=== PATIENT | male | born 1965 | race Two or more races ===

== ENCOUNTER 2024-12-26 16:37 | Emergency (ER) | payer MEDICAID, SELFPAY ==
[2024-12-26 16:39] VITALS: BMI 32.4
[2024-12-26 17:04] VITALS: BP 135/83; PULSE 96; RESP 16; TEMP 37.2; O2SAT 96
--- NOTE | 2024-12-26 17:14 | PD.EDRME ---
Rapid Medical Screening Exam E Arrival date/time: 12/26/24 16:37 This is a 59-year-old male that comes into the emergency room with complaints of abdominal pain. Patient states that it is a pressure and sometimes a cramping pain that he has had over a month. Patient was seen by his primary provider and was prescribed omeprazole. Patient states that it has not helped him. Patient denies nausea vomiting but complains of diarrhea sometimes. Patient denies fever. Patient reports history of possible diabetes. I have greeted and performed a focused initial assessment of this patient. Initial appropriate labs ordered at this time. A comprehensive ED assessment and evaluation of the patient and analysis of all test and completion of medical decision making process will be conducted by additional ED provider. Chief Complaint: Abdominal Pain Time Seen by Provider: 12/26/24 16:59 Vital signs: Vital Signs Temperature 99.0 F 12/26/24 17:04 Pulse Rate 96 12/26/24 17:04 Respiratory Rate 16 12/26/24 17:04 Blood Pressure 135/83 H 12/26/24 17:04 Pulse Oximetry (%) 96 12/26/24 17:04 Oxygen Delivery Method Room Air 12/26/24 17:04
[2024-12-26 18:16] LABS: Collection Type, Urine Voided; Squamous Epithelial Cell,Urine 0 /hpf (0-5)
[2024-12-26 18:20] LABS: Basophils # (Auto) 0.0 Thou/mm3 (0.0-0.2); Basophils % (Auto) 1 % (0-2.5); Eosinophils # (Auto) 0.3 Thou/mm3 (0.0-0.5); Eosinophils % (Auto) 5 % (0-10); Hematocrit 42.3 % (41.0-53.0); Hemoglobin 13.2 g/dL (13.5-16.0); Immature Granulocytes Auto 0.01 Thou/mm3 (0.00-0.00); Lymphocytes # (Auto) 0.9 Thou/mm3 (1.0-4.8); Lymphocytes % (Auto) 17 % (10-50); Mean Corpuscular HGB Conc 31.2 g/dl (31.0-37.0); Mean Corpuscular Hemoglobin 23.9 pg (25.0-35.0); Mean Corpuscular Volume 77 fL (80-100); Monocytes # (Auto) 0.6 Thou/mm3 (0.0-0.8); Monocytes % (Auto) 10 % (0-12); Neutrophils # (Auto) 3.6 Thou/mm3 (1.8-7.7); Neutrophils % (Auto) 67 % (37-80); Nucleated Red Blood Cell # 0.00 Thou/mm3 (0.00-0.00); Nucleated Red Blood Cell % 0 /100 WBC (0); Platelet Count 243 Thou/mm3 (140-440); RDW Standard Deviation 36.2 fL (35.1-43.9); Red Blood Count 5.53 Miln/mm3 (4.50-5.90); White Blood Count 5.4 Thou/mm3 (3.8-10.6)
[2024-12-26 18:35] LABS: Bacteria,Urine Rare; Bilirubin,Urine Negative (Negative); Blood,Urine Negative (Negative); Clarity,Urine Turbid (Clear/Hazy); Color,Urine Yellow (Lt Yel-Yel); Culture Indicated,Urine Not Indicated; Glucose, Urine Negative (Negative); Hyaline Casts,Urine < 1 /hpf (0-1); Ketones,Urine Negative (Negative); Leukocyte Esterase,Urine Negative (Negative); Nitrite,Urine Negative (Negative); PH,Urine 6.5 (5.0-7.0); Protein,Urine Trace (Neg - Trace); RBC,Urine 4 /hpf (0-3); Specific Gravity,Urine 1.032 (1.001-1.035); Urobilinogen,Urine 2.0 mg/dL (0.0-1.0); WBC,Urine 2 /hpf (0-5)
[2024-12-26 18:36] LABS: Alanine Aminotransferase 11 U/L (10-49); Albumin, Serum 4.1 gm/dL (3.4-4.8); Albumin/Globulin Ratio 1.6 (1.2-2.2); Alkaline Phosphatase 96 U/L (46-116); Anion Gap 10 (7-16); Aspartate Amino Transferase 20 U/L (0-34); BUN/Creatinine Ratio 6 Ratio (12-20); Bilirubin,Total 0.6 mg/dL (0.3-1.2); Blood Urea Nitrogen 6 mg/dL (9-23); Calcium 9.6 mg/dL (8.3-10.6); Calcium (Corrected) 9.6 mg/dL (8.5-10.1); Carbon Dioxide 25.7 mMol/L (20.0-31.0); Chloride 104 mMol/L (98-107); Creatinine (Component) 1.0 mg/dL (0.6-1.3); Estimated Creatinine Clearance 80.3 mL/min (>60); Globulin 2.6 gm/dL (2.3-3.5); Glucose 106 mg/dL (74-106); Lipase 59 U/L (12-53); Osmolality,Calculated 277 (275-295); Potassium 3.7 mMol/L (3.4-5.1); Sodium 140 mMol/L (136-145); Total Protein 6.7 gm/dL (5.7-8.2); eGFR > 60 See Note
[2024-12-26 19:10] VITALS: BP 127/80; PULSE 92; RESP 18; O2SAT 98
--- NOTE | 2024-12-26 19:13 | EDNOTE_ITS ---
ED Abdominal Pain RME/HPI General Chief Complaint: Abdominal Pain Stated complaint: ABD PAIN Time seen by provider: 12/26/24 16:59 Arrival date/time: 12/26/24 16:37 RME / HPI RME / HPI narrative: 59-year-old male that comes into the emergency room with complaints of abdominal pain. Patient states that it is a pressure and sometimes a cramping pain that he has had over a month. Patient was seen by his primary provider and was prescribed omeprazole. Patient states that it has not helped him. Patient denies nausea vomiting but complains of diarrhea sometimes. Patient denies fever. Patient reports history of possible diabetes. Denies any other complaints no medication was taken prior to arrival. Related Data Previous Rx's ?Medication ?Instructions ?Recorded famotidine 40 mg tablet (Pepcid) 40 mg PO BID #30 tabs 12/26/24 metoclopramide HCl 10 mg tablet 10 mg PO Q6H PRN nause a and 12/26/24 (Reglan) vomiting #20 tabs Allergies Allergy/AdvReac Type Severity Reaction Status Date / Time No Known Allergies Allergy Verified 12/26/24 16:39 Review of Systems Review of Systems Narrative Review of Systems: Review of system reviewed and within normal limits except mentioned in HPI ED Exam Narrative Physical exam: VITAL SIGNS: Reviewed. GENERAL APPEARANCE: Alert and interactive, follows commands, no acute distress, HEAD AND FACE: Non-traumatic. ENT: PERRL, pink conjunctivitis, eyelid no trauma, Mucous membrane moist. NECK: Supple, nontender, no nuchal rigidity. CHEST: No tenderness, no crepitus, no paradoxical movement, no retractions. LUNGS: Clear, well ventilated, symmetric, no rales, no wheezing, no ronchi, no stridor, good breath sounds bilaterally. HEART: Regular rate, regular rhythm, no murmur, no gallops. ABDOMEN: Soft, positive bowel sounds, nondistended, no guarding, epigastric mild tenderness, no rebound, no masses, RECTAL: Deferred. GENITAL: Deferred. NEUROLOGICAL: Gross motor function intact sensory function intact, Appropriate for age. MUSCULOSKELETAL: low back nontender, full range of motion. EXTREMITIES: Nontender, full range of motion. SKIN: Color pink, dry, no rash, no lacerations, no abrasions, no contusions. LYMPHATICS: Deferred. Course Quality Measures none Orders Category Date Time Status CBC Stat Lab 12/26/24 17:58 Completed Comprehensive Metabolic Panel Stat Lab 12/26/24 17:58 Completed Lipase Stat Lab 12/26/24 17:58 Completed Urinalysis, C/S if Indicated Stat Lab 12/26/24 18:08 Completed Vital Signs Vital signs: Vital Signs Temperature 99.0 F 12/26/24 17:04 Pulse Rate 96 12/26/24 17:04 Respiratory Rate 16 12/26/24 17:04 Blood Pressure 135/83 H 12/26/24 17:04 Pulse Oximetry (%) 96 12/26/24 17:04 Oxygen Delivery Method Room Air 12/26/24 17:04 Abdominal Pain MDM MDM Narrative MDM Narrative:: 59-year-old male that comes into the emergency room with complaints of abdominal pain. Patient states that it is a pressure and sometimes a cramping pain that he has had over a month. Patient was seen by his primary provider and was prescribed omeprazole. Patient states that it has not helped him. Patient denies nausea vomiting but complains of diarrhea sometimes. Patient denies fever. Patient reports history of possible diabetes. Denies any other complaints no medication was taken prior to arrival. Patient's workup today all came back normal no leukocytosis, CMP unremarkable lipase is 59. Imaging is not needed at this time patient is having pain for more than a month now. Patient will be sent home on Pepcid. Patient appears nontoxic and hemodynamically stable .Decision to discharge the patient. The patient/family was given an opportunity to ask questions and understood their discharge instructions. Discharge instructions specifically included follow up provider and time frame, current and/or new medications and possible side effects, indications for sooner follow up or return to the emergency department, and the expected course of current diagnosis. Patient reports feeling better as well and giving evidence of significant clinical improvement, I believe patient is now a candidate for discharge. Patient data External records reviewed:: None Clinical information provided by:: patient Social determinants that could affect healthcare access:: none Patient has the following chronic illnesses:: Diabetes How is presenting disease/condition affected by chronic disease/condition?: exacerbated by Evaluation data The following diagnostics were reviewed and interpreted by me:: lab results Lab and/or radiology exams considered but not ordered:: None Interpretation Summary: See results MDM Medications / Prescriptions Medications or Prescriptions considered but not ordered:: None Medication administrations:: None Consultations Consultation(s) initiated? (list below): No Diagnosis Differential diagnosis abdominal pain: abdominal pain and pancreatitis Most likely diagnosis given after review of the tests above:: Abdominal pain, gastritis gastroparesis Admission Indicated Admission indicated?: indicated Admission Request Was there a request for admission?: No Disposition Plan Disposition Plan: Discharge Discharge Attestation Discharge Attestation: The patient was given an opportunity to ask questions and understood the discharge instructions. Discharge instructions specifically effects, indications for sooner follow up or return to the emergency department, and the expected course of current diagnosis. Patient condition: Stable Discharge Plan Plan Patient Disposition: HOME (Self Care) Discharge Disposition comment: stable Prescriptions/Referrals Prescriptions/Med Rec: New metoclopramide HCl [Reglan] 10 mg tablet 10 mg PO Q6H PRN (Reason: nausea and vomiting) Qty: 20 0RF famotidine [Pepcid] 40 mg tablet 40 mg PO BID Qty: 30 0RF Referrals: Edilberto Butler MD [Primary Care Provider] - In 1 week Problem List Clinical Impression: Abdominal pain, Gastritis Patient/Caregiver Discharge Instructions Discharge Activity: activity as tolerated Education Materials: ED Gastritis (Adult) Additional Instructions: Thank you for the opportunity for serving you today. You are stable for discharged . You are advised to: Follow-up with your PCP in 1 to 2 days Return to ED for worsening of symptoms Increase oral fluids Take medication as prescribed Print Language: Belarusian Stand Alone Forms: Luz Award Info., Patient Portal Info Letter JAVAD/NOEL Supervising Physician BREANNE Supervising Physician: MD Wisam
== END 2024-12-26 19:50 | disposition home or self-care (01) ==
PROVIDERS: Nurse Practitioner Family; Emergency Provider Family Medicine; PCP Family Medicine
DX: K29.70 Gastritis, unspecified, without bleeding (principal)
CPT/HCPCS: 36415; 80053; 81001; 83690; 85025; 99283

== ENCOUNTER 2025-01-15 09:04 | Emergency (ER) | payer MEDICAID, SELFPAY ==
[2025-01-15 09:15] VITALS: BP 130/89; PULSE 104; RESP 18; TEMP 36.9; O2SAT 98; BMI 32.4
--- NOTE | 2025-01-15 09:23 | XR_ITS ---
Examination: CT abdomen and pelvis without contrast. Coronal 3-D reconstructions. Sagittal 2-D reconstructions. Date and time of exam:January 15, 2025 0940 hours INDICATIONS: Generalized abdominal pain today CTDI: vol (mGy): 8.95 DLP: (mGycm): 6 3 0 Technique: Axial images of the abdomen have been obtained, 3 mm slice thickness Intravenous contrast material has not been administered. Low dose protocols were performed. One or more of the following dose reduction techniques were used; automated exposure control, adjustment of the mA and/or KV according to patient size, use of iterative reconstruction technique. Findings: Cirrhosis, liver irregular in contour with prominent ascites, no focal liver or splenic lesions No gallstones No pancreatic or adrenal mass. No hydronephrosis Aorta normal size No bowel obstruction Normal appendix Contracted urinary bladder Prostatomegaly, transverse dimension 5.6 cm Moderate osteopenia IMPRESSION: Cirrhosis Significant ascites No bowel obstruction
--- NOTE | 2025-01-15 09:23 | PD.EDRME ---
Rapid Medical Screening Exam RME Arrival date/time: 01/15/25 09:04 59-year-old male with no known medical history presents to the emergency room with a chief complaint of abdominal distention, abdominal pain, nausea, vomiting x 3 weeks I have greeted and performed a focused initial assessment of this patient. A comprehensive ED assessment and evaluation of the patient, analysis of all test results, and completion of the medical decision making process will be conducted by additional ED providers. Chief Complaint: Abdominal Pain Time Seen by Provider: 01/15/25 09:07 Vital signs: Vital Signs Temperature 98.5 F 01/15/25 09:15 Pulse Rate 104 H 01/15/25 09:15 Respiratory Rate 18 01/15/25 09:15 Blood Pressure 130/89 H 01/15/25 09:15 Pulse Oximetry (%) 98 01/15/25 09:15 Oxygen Delivery Method Room Air 01/15/25 09:15 Vital signs reviewed by provider: Yes
[2025-01-15 10:19] LABS: Basophils # (Auto) 0.1 Thou/mm3 (0.0-0.2); Basophils % (Auto) 1 % (0-2.5); Eosinophils # (Auto) 0.1 Thou/mm3 (0.0-0.5); Eosinophils % (Auto) 2 % (0-10); Hematocrit 41.2 % (41.0-53.0); Hemoglobin 13.2 g/dL (13.5-16.0); Immature Granulocytes Auto 0.01 Thou/mm3 (0.00-0.00); Lymphocytes # (Auto) 0.8 Thou/mm3 (1.0-4.8); Lymphocytes % (Auto) 14 % (10-50); Mean Corpuscular HGB Conc 32.0 g/dl (31.0-37.0); Mean Corpuscular Hemoglobin 24.0 pg (25.0-35.0); Mean Corpuscular Volume 75 fL (80-100); Monocytes # (Auto) 0.6 Thou/mm3 (0.0-0.8); Monocytes % (Auto) 10 % (0-12); Neutrophils # (Auto) 4.1 Thou/mm3 (1.8-7.7); Neutrophils % (Auto) 74 % (37-80); Nucleated Red Blood Cell # 0.00 Thou/mm3 (0.00-0.00); Nucleated Red Blood Cell % 0 /100 WBC (0); Platelet Count 327 Thou/mm3 (140-440); RDW Standard Deviation 35.1 fL (35.1-43.9); Red Blood Count 5.49 Miln/mm3 (4.50-5.90); White Blood Count 5.6 Thou/mm3 (3.8-10.6)
[2025-01-15 10:30] LABS: Collection Type, Urine Clean Catch; Squamous Epithelial Cell,Urine 0 /hpf (0-5)
[2025-01-15 10:47] VITALS: BP 123/89; PULSE 96; RESP 18; TEMP 36.7; O2SAT 98
[2025-01-15 10:48] LABS: Alanine Aminotransferase 12 U/L (10-49); Albumin, Serum 3.7 gm/dL (3.4-4.8); Albumin/Globulin Ratio 1.5 (1.2-2.2); Alkaline Phosphatase 82 U/L (46-116); Anion Gap 10 (7-16); Aspartate Amino Transferase 24 U/L (0-34); BUN/Creatinine Ratio 9 Ratio (12-20); Bilirubin,Total 0.7 mg/dL (0.3-1.2); Blood Urea Nitrogen 7 mg/dL (9-23); Calcium 8.8 mg/dL (8.3-10.6); Calcium (Corrected) 9.0 mg/dL (8.5-10.1); Carbon Dioxide 25.7 mMol/L (20.0-31.0); Chloride 103 mMol/L (98-107); Creatinine (Component) 0.8 mg/dL (0.6-1.3); Estimated Creatinine Clearance 100.4 mL/min (>60); Globulin 2.4 gm/dL (2.3-3.5); Glucose 100 mg/dL (74-106); Osmolality,Calculated 275 (275-295); Potassium 3.7 mMol/L (3.4-5.1); Sodium 139 mMol/L (136-145); Total Protein 6.1 gm/dL (5.7-8.2); eGFR > 60 See Note
[2025-01-15 10:59] LABS: Bacteria,Urine Rare; Bilirubin,Urine Negative (Negative); Blood,Urine Negative (Negative); Clarity,Urine Clear (Clear/Hazy); Color,Urine Yellow (Lt Yel-Yel); Glucose, Urine Negative (Negative); Hyaline Casts,Urine < 1 /hpf (0-1); Ketones,Urine 2+ (Negative); Leukocyte Esterase,Urine Negative (Negative); Nitrite,Urine Negative (Negative); PH,Urine 6.5 (5.0-7.0); Protein,Urine Trace (Neg - Trace); RBC,Urine 2 /hpf (0-3); Specific Gravity,Urine 1.019 (1.001-1.035); Urobilinogen,Urine Negative mg/dL (0.0-1.0); WBC,Urine 2 /hpf (0-5)
--- NOTE | 2025-01-15 11:21 | XR_ITS ---
Examination: Ultrasound-guided paracentesis Abdominal sonogram limited Date and time of exam: January 15, 2025 1358 hours INDICATIONS: Cirrhosis, increasing ascites and abdominal distention this week Informed consent provided. A timeout was completed verifying correct patient, procedure, site, positioning, and special adequate movement if applicable. Technique: Multiple sonographic images of the abdomen have been obtained. Appropriate area for paracentesis was marked. Local anesthesia is obtained with 1% lidocaine. Yueh catheter is successfully introduced. Findings: Abdominal sonographic images demonstrate sufficient ascitic fluid for paracentesis. After placing the Yueh catheter, 4200 cc of fluid were successfully removed. During and after completion of the procedure the patient appear in satisfactory and stable condition with no complications observed. Estimated blood loss 0 cc Impression: Abdominal ascites Successful ultrasound-guided paracentesis as described above
--- NOTE | 2025-01-15 11:23 | PD.EDABDPN ---
ED Abdominal Pain RME/HPI General Chief Complaint: Abdominal Pain Stated complaint: ABD PAIN Time seen by provider: 01/15/25 09:07 Arrival date/time: 01/15/25 09:04 Limitations: no limitations RME / HPI RME / HPI narrative: 01/15/25 09:04 59-year-old male with no known medical history presents to the emergency room with a chief complaint of abdominal distention, abdominal pain, nausea, vomiting x 3 weeks I have greeted and performed a focused initial assessment of this patient. A comprehensive ED assessment and evaluation of the patient, analysis of all test results, and completion of the medical decision making process will be conducted by additional ED providers. DR. BATRES MAIN ED EVALUATION: 59 year old male with history of gastritis otherwise no other stated medical history presents to the ED for evaluation of abdominal pain beginning 1 month ago. Described as fullness aching in sensation that is located throughout, though most severe to the left upper abdomen. Accompanied by nausea, vomiting, and occasionally feeling short of breath. Reportedly was evaluated here 1 month ago for similar symptoms and discharged home diagnosed with gastritis and prescribed medications. States he took medications with no change in symptoms and followed up with PCP. States his PCP tested him for H.Pylori that resulted negative and has been referred to GI for EGD. States he has yet to receive a phone call to schedule an appointment with GI. Denies fevers, chills, chest pain, cough, diarrhea, constipation, or urinary symptoms. Patient admits to drinking alcohol socially. Denies heavy drinking. Related Data Previous Rx's ?Medication ?Instructions ?Recorded famotidine 40 mg tablet (Pepcid) 40 mg PO BID #30 tabs 12/26/24 metoclopramide HCl 10 mg tablet 10 mg PO Q6H PRN nausea and 12/26/24 (Reglan) vomiting #20 tabs Allergies Allergy/AdvReac Type Severity Reaction Status Date / Time No Known Allergies Allergy Verified 01/15/25 09:06 Review of Systems Review of Systems Systems Reviewed: All systems reviewed, normal except as documented Past Medical History Past Medical History CARDIAC: Negative Congestive Heart Failure RESPIRATORY: Negative Chronic Obstructive Pulmonary Disease (COPD) GENITOURINARY: Negative Renal Disease ENDOCRINE: Negative Diabetes Mellitus Type 1 or Diabetes Mellitus Type 2 Social History SMOKING STATUS: Never smoker ED Exam General Limitations: Present no limitations General appearance: Present alert and in no apparent distress Head Head exam: Present atraumatic, normocephalic and normal inspection Eye Eye exam: Present normal appearance, PERRL and EOMI ENT ENT exam: Present normal exam, normal oropharynx and mucous membranes moist Neck Neck exam: Present normal inspection, full ROM and trachea midline Chest Chest inspection: Present normal inspection and symmetric chest wall rise Respiratory Respiratory exam: Present normal lung sounds bilaterally Cardiovascular Cardiovascular exam: Present regular rate, normal rhythm and normal heart sounds Abdominal Exam Abdominal exam: Present soft, distention (with positive fluid shift ) and normal bowel sounds Extremities Exam Extremities exam: Present normal inspection and full ROM Back Exam Back exam: Present normal inspection and full ROM Neurological Exam Neurological exam: Present alert, oriented X3 and CN II-XII intact Psychiatric Psychiatric exam: Present normal affect and normal mood Skin Skin exam: Present warm, dry, intact and normal color Course Quality Measures none Orders Category Date Time Status CT abdomen pelvis wo con Stat Exams 01/15/25 09:23 Completed US paracentesis abd w/image Stat Exams 01/15/25 11:21 Completed CBC Stat Lab 01/15/25 09:51 Completed CMP [Comprehensive Metabolic Panel] Stat Lab 01/15/25 09:51 Completed PT [Prothrombin Time with INR] Stat Lab 01/15/25 09:51 Completed PTT [Partial Thromboplastin Time] Stat Lab 01/15/25 09:51 Completed UA [Urinalysis] Stat Lab 01/15/25 10:22 Completed Urine Culture Stat Lab 01/15/25 10:22 Received Lidocaine 1% Pf 30 ml [Xylocaine 1% Pf 30 ml] Med 01/15/25 13:44 Discontinued 30 ml .ROUTE .STK-MED ONE Vital Signs Vital signs: Vital Signs Temperature 98.5 F 01/15/25 09:15 Pulse Rate 104 H 01/15/25 09:15 Respiratory Rate 18 01/15/25 09:15 Blood Pressure 130/89 H 01/15/25 09:15 Pulse Oximetry (%) 98 01/15/25 09:15 Oxygen Delivery Method Room Air 01/15/25 09:15 Pulse ox is 98% on room air which is adequate. Abdominal Pain MDM MDM Narrative MDM Narrative:: Tracie Joel am scribing for and in the presence of Dr. Batres. Patient data External records reviewed:: [facility] previous records (I reviewed ED Visit on 12/26/2024 ) Clinical information provided by:: patient Social determinants that could affect healthcare access:: none Patient has the following chronic illnesses:: Recently dx with gastritis How is presenting disease/condition affected by chronic disease/condition?: exacerbated by Evaluation data The following diagnostics were reviewed and interpreted by me:: lab results and radiology exam(s) Lab and/or radiology exams considered but not ordered:: None Interpretation Summary: Ordering Physician: Ian Otoole Date of Service: 01/15/25 Procedure(s): CT abdomen pelvis wo con Accession Number(s): [id number] cc: Ian Otoole; Edilberto Butler MD; Dewey Rock MD~ Examination: CT abdomen and pelvis without contrast. Coronal 3-D reconstructions. Sagittal 2-D reconstructions. Date and time of exam:January 15, 2025 0940 hours INDICATIONS: Generalized abdominal pain today CTDI: vol (mGy): 8.95 DLP: (mGycm): 6 3 0 Technique: Axial images of the abdomen have been obtained, 3 mm slice thickness Intravenous contrast material has not been administered. Low dose protocols were performed. One or more of the following dose reduction techniques were used; automated exposure control, adjustment of the mA and/or KV according to patient size, use of iterative reconstruction technique. Findings: Cirrhosis, liver irregular in contour with prominent ascites, no focal liver or splenic lesions No gallstones No pancreatic or adrenal mass. No hydronephrosis Aorta normal size No bowel obstruction Normal appendix Contracted urinary bladder Prostatomegaly, transverse dimension 5.6 cm Moderate osteopenia IMPRESSION: Cirrhosis Significant ascites No bowel obstruction Dictated By: Dewey Rock MD Signed By: <Electronically signed by Dewey Rock MD in OV> 01/15/25 1018 Ordering Physician: Renaldo Batres MD Date of Service: 01/15/25 Procedure(s): US paracentesis abd w/image Accession Number(s): [id number] cc: Renaldo Batres MD; Edilberto Butler MD; Dewey Rock MD~ Examination: Ultrasound-guided paracentesis Abdominal sonogram limited Date and time of exam: January 15, 2025 1358 hours INDICATIONS: Cirrhosis, increasing ascites and abdominal distention this week Informed consent provided. A timeout was completed verifying correct patient, procedure, site, positioning, and special adequate movement if applicable. Technique: Multiple sonographic images of the abdomen have been obtained. Appropriate area for paracentesis was marked. Local anesthesia is obtained with 1% lidocaine. Yueh catheter is successfully introduced. Findings: Abdominal sonographic images demonstrate sufficient ascitic fluid for paracentesis. After placing the Yueh catheter, 4200 cc of fluid were successfully removed. During and after completion of the procedure the patient appear in satisfactory and stable condition with no complications observed. Estimated blood loss 0 cc Impression: Abdominal ascites Successful ultrasound-guided paracentesis as described above Dictated By: Dewey Rock MD Signed By: <Electronically signed by Dewey Rock MD in OV> 01/15/25 1454 Medications / Prescriptions Medications or Prescriptions considered but not ordered:: None Medication administrations:: Medication Administration History Discontinued Medications Lidocaine HCl (Lidocaine Inj Pf 1% 30 Ml Vial) Confirm Administered Dose 30 ml .ROUTE .STK-MED ONE Stop: 01/15/25 13:45 Last Admin: 01/15/25 15:40 Dose: Not Given Documented By: FC Non-Admin Reason: Other, see note Comments: given in [place] See above Consultations Consultation(s) initiated? (list below): No Diagnosis Differential diagnosis abdominal pain: abdominal pain, constipation, gastroenteritis and pancreatitis Most likely diagnosis given after review of the tests above:: Cirrhosis of liver Ascites Admission Indicated Admission indicated?: not indicated Admission Request Was there a request for admission?: No Disposition Plan Disposition Plan: Discharge Discharge Attestation Discharge Attestation: The patient and all family members were given an opportunity to ask questions and understood the discharge instructions. Discharge instructions specifically effects, indications for sooner follow up or return to the emergency department, and the expected course of current diagnosis. Patient condition: Stable Discharge Plan Plan Patient Disposition: HOME (Self Care) Patient condition on transfer: Stable Prescriptions/Referrals Prescriptions/Med Rec: No Action metoclopramide HCl [Reglan] 10 mg tablet 10 mg PO Q6H PRN (Reason: nausea and vomiting) Qty: 20 0RF famotidine [Pepcid] 40 mg tablet 40 mg PO BID Qty: 30 0RF Referrals: Edilberto Butler MD [Primary Care Provider, Family Practice] - In 1 week Problem List Clinical Impression: Cirrhosis of liver, Ascites Patient/Caregiver Discharge Instructions Discharge Activity: activity as tolerated Education Materials: Paracentesis, ED Ascites, ED Cirrhosis Additional Instructions: Follow-up with your doctor for evaluation of your cirrhosis. Consider consultation with a sleeping room cleaner. Print Language: Amharic Stand Alone Forms: Luz Award Info., Patient Portal Info Letter
[2025-01-15 12:42] VITALS: BP 134/82; PULSE 101; RESP 24; TEMP 36.7; O2SAT 100
[2025-01-15 13:12] LABS: INR 1.1 (0.9-1.3); Partial Thromboplastin Time 29.4 Seconds (22.0-36.0); Prothrombin Time 11.6 Seconds (9.0-12.2)
--- NOTE | 2025-01-15 14:58 | PC.NURSE ---
Patient back from Ultrasound
[2025-01-15 16:36] VITALS: BP 142/86; PULSE 101; RESP 20; TEMP 36.7; O2SAT 99
== END 2025-01-15 16:44 | disposition home or self-care (01) ==
PROVIDERS: Family Medicine; Emergency Provider Nurse Practitioner Family; PCP Family Medicine
DX: K74.60 Unspecified cirrhosis of liver (principal); R18.8 Other ascites
CPT/HCPCS: 49083; 36415; 74176; 80053; 81001; 85025; 85610; 85730; 87086; 99284

== ENCOUNTER 2025-01-25 15:08 | Emergency (ER) | payer MEDICAID, SELFPAY ==
[2025-01-25 15:16] VITALS: BP 122/82; PULSE 110; RESP 20; TEMP 36.7; O2SAT 96
--- NOTE | 2025-01-25 15:20 | XR_ITS ---
Examination: CT abdomen and pelvis without contrast. Coronal 3-D reconstructions. Sagittal 2-D reconstructions. Date and time of exam:January 25, 2025, 1757 hrs. Indications: Upper abdominal pain nausea beginning 3 days ago CTDI: vol (mGy): 7.49 DLP: (mGycm): 503 Technique: Axial images of the abdomen have been obtained, 3 mm slice thickness Intravenous contrast material has not been administered. Low dose protocols were performed. One or more of the following dose reduction techniques were used; automated exposure control, adjustment of the mA and/or KV according to patient size, use of iterative reconstruction technique. Findings: Cirrhosis, liver nodular in contour Significant ascites Perigastric varices No gallstones No pancreatic or adrenal mass 2 mm lower pole left renal calculus, no hydronephrosis or ureteral calculi Subcentimeter periaortic lymph nodes No bowel obstruction Urinary bladder intact Transverse prostate dimension 5.7 cm Moderate osteopenia Moderate bilateral hip osteoarthritis Impression: Cirrhosis Perigastric varices Significant ascites 2 mm lower pole nonobstructing left renal calculus No bowel obstruction Moderate prostatomegaly
--- NOTE | 2025-01-25 15:21 | PD.EDRME ---
Rapid Medical Screening Exam RME Arrival date/time: 01/25/25 15:08 This is a case of 59-year-old male with history of cirrhosis and ascites came in in the emergency room due to abdominal pain nausea and vomiting patient states that he is due for paracentesis due to abdominal distention worsening of the pain thus patient decided to sought consult here in the emergency room Chief Complaint: Nausea/Vomiting/Diarrhea Time Seen by Provider: 01/25/25 15:11 Vital signs: Vital Signs Temperature 98.0 F 01/25/25 15:16 Pulse Rate 110 H 01/25/25 15:16 Respiratory Rate 20 01/25/25 15:16 Blood Pressure 122/82 01/25/25 15:16 Pulse Oximetry (%) 96 01/25/25 15:16 Oxygen Delivery Method Room Air 01/25/25 15:16
[2025-01-25 15:47] LABS: Basophils # (Auto) 0.0 Thou/mm3 (0.0-0.2); Basophils % (Auto) 1 % (0-2.5); Eosinophils # (Auto) 0.1 Thou/mm3 (0.0-0.5); Eosinophils % (Auto) 1 % (0-10); Hematocrit 43.9 % (41.0-53.0); Hemoglobin 13.6 g/dL (13.5-16.0); Immature Granulocytes Auto 0.02 Thou/mm3 (0.00-0.00); Lymphocytes # (Auto) 0.8 Thou/mm3 (1.0-4.8); Lymphocytes % (Auto) 12 % (10-50); Mean Corpuscular HGB Conc 31.0 g/dl (31.0-37.0); Mean Corpuscular Hemoglobin 23.1 pg (25.0-35.0); Mean Corpuscular Volume 74 fL (80-100); Monocytes # (Auto) 0.6 Thou/mm3 (0.0-0.8); Monocytes % (Auto) 9 % (0-12); Neutrophils # (Auto) 5.3 Thou/mm3 (1.8-7.7); Neutrophils % (Auto) 77 % (37-80); Nucleated Red Blood Cell # 0.00 Thou/mm3 (0.00-0.00); Nucleated Red Blood Cell % 0 /100 WBC (0); Platelet Count 366 Thou/mm3 (140-440); RDW Standard Deviation 35.1 fL (35.1-43.9); Red Blood Count 5.90 Miln/mm3 (4.50-5.90); White Blood Count 6.9 Thou/mm3 (3.8-10.6)
[2025-01-25] MEDS: ONDANSETRON INJ 2 MG/ML INJ 2 ML 4 MG IM (16:00)
[2025-01-25 16:11] LABS: Alanine Aminotransferase 9 U/L (10-49); Albumin, Serum 3.8 gm/dL (3.4-4.8); Albumin/Globulin Ratio 1.5 (1.2-2.2); Alkaline Phosphatase 85 U/L (46-116); Anion Gap 9 (7-16); Aspartate Amino Transferase 20 U/L (0-34); BUN/Creatinine Ratio 8 Ratio (12-20); Bilirubin,Total 0.6 mg/dL (0.3-1.2); Blood Urea Nitrogen 8 mg/dL (9-23); Calcium 9.3 mg/dL (8.3-10.6); Calcium (Corrected) 9.5 mg/dL (8.5-10.1); Carbon Dioxide 26.6 mMol/L (20.0-31.0); Chloride 102 mMol/L (98-107); Creatinine (Component) 1.0 mg/dL (0.6-1.3); Globulin 2.5 gm/dL (2.3-3.5); Glucose 126 mg/dL (74-106); Lipase 88 U/L (12-53); Osmolality,Calculated 275 (275-295); Potassium 4.0 mMol/L (3.4-5.1); Sodium 138 mMol/L (136-145); Total Protein 6.3 gm/dL (5.7-8.2); eGFR > 60 See Note
[2025-01-25 16:38] LABS: Collection Type, Urine Clean Catch; Squamous Epithelial Cell,Urine 0 /hpf (0-5)
--- NOTE | 2025-01-25 17:05 | PD.EDADULT ---
ED General RME/HPI General Chief complaint: Nausea/Vomiting/Diarrhea Stated complaint: CAN'T EAT, N/V, STOMACH FULL OF WATER Time Seen by Provider: 01/25/25 15:11 Arrival date/time: 01/25/25 15:08 CC: Abdominal distention HPI patient has a history of ascites, last paracentesis was January 15. The patient states he is now distended but not short of breath. Patient is awake alert oriented, denies chest pain shortness of breath or difficulty breathing. RME / HPI RME / HPI narrative: 01/25/25 15:08 This is a case of 59-year-old male with history of cirrhosis and ascites came in in the emergency room due to abdominal pain nausea and vomiting patient states that he is due for paracentesis due to abdominal distention worsening of the pain thus patient decided to sought consult here in the emergency room Related Data Previous Rx's ?Medication ?Instructions ?Recorded famotidine 40 mg tablet (Pepcid) 40 mg PO BID #30 tabs 12/26/24 metoclopramide HCl 10 mg tablet 10 mg PO Q6H PRN nausea and 12/26/24 (Reglan) vomiting #20 tabs Allergies Allergy/AdvReac Type Severity Reaction Status Date / Time No Known Allergies Allergy Verified 01/25/25 15:11 Review of Systems Review of Systems Narrative Review of Systems: GEN: No fever, no chills, no weight loss EYES: No discharge, no visual changes, no pain HEENT: No ear pain, no congestion, no sore throat PULM: No shortness of breath, no cough, no congestion CV: No chest pain, no dyspnea on exertion, no palpitations GI: No nausea, no vomiting, no diarrhea, no pain, + abdominal distention ,no constipation : No frequency, no urgency, no dysuria MUSC/SKEL: No joint pain, no back pain SKIN: No rash PSYCH: No hallucinations, no depression HEME/LYMPH: No easy bleeding or bruising tendencies NEURO: No weakness, no headache ED Exam Narrative Physical exam: [General: Not in any acute distress Head normocephalic HEENT: Within acceptable limits Neck is supple nontender Chest equal chest rise nontender to palpation Respiratory: Clear to auscultation no wheezes crackles or rubs CV: Rate rhythm is regular no murmurs rubs or clicks Abdomen is distended secondary to ascites, nontender, soft, not firm or rigid. Back: No CVA tenderness no spinous process tenderness from cervical spine thoracic and lumbar spine Skin: Intact no petechiae rash induration ulceration or crepitus Extremities: Moving all extremity against resistance cap refill less than 2 seconds neurosensory intact Neuro: Awake alert oriented x3 Glascow coma 15 no focal deficits] Course Course Course Narrative: Reassessment of this patient at 1815, the patient is not in any acute distress the belly remains soft at this time I have nobody that we will do a paracentesis we will discharge the patient home and he can return in the morning for IR paracentesis. Quality Measures none Orders Category Date Time Status CT abdomen pelvis wo con Stat Exams 01/25/25 15:20 Completed CBC Stat Lab 01/25/25 15:30 Completed Comprehensive Metabolic Panel Stat Lab 01/25/25 15:30 Completed Lipase Stat Lab 01/25/25 15:30 Completed PT [Prothrombin Time with INR] Stat Lab 01/25/25 15:30 Completed PTT [Partial Thromboplastin Time] Stat Lab 01/25/25 15:30 Completed Urinalysis Stat Lab 01/25/25 16:20 Completed Ondansetron Inj [Zofran Inj] Med 01/25/25 15:20 Discontinued 4 mg IM X1 ONE Vital Signs Vital signs: Vital Signs Temperature 98.0 F 01/25/25 15:16 Pulse Rate 110 H 01/25/25 15:16 Respiratory Rate 20 01/25/25 15:16 Blood Pressure 122/82 01/25/25 15:16 Pulse Oximetry (%) 96 01/25/25 15:16 Oxygen Delivery Method Room Air 01/25/25 15:16 Discharge Plan Plan Patient Disposition: HOME (Self Care) Patient condition on transfer: Stable Prescriptions/Referrals Prescriptions/Med Rec: No Action metoclopramide HCl [Reglan] 10 mg tablet 10 mg PO Q6H PRN (Reason: nausea and vomiting) Qty: 20 0RF famotidine [Pepcid] 40 mg tablet 40 mg PO BID Qty: 30 0RF Referrals: Edilberto Butler MD [Primary Care Provider, Family Practice] - In 1 week Problem List Clinical Impression: Abdominal distension, Ascites Patient/Caregiver Discharge Instructions Other Activity Instructions:: Return tomorrow before noon for paracentesis Education Materials: ED Ascites Print Language: South African Stand Alone Forms: Luz Award Info., Work/School Release, Patient Portal Info Letter JAVAD/NOEL Supervising Physician BREANNE Supervising Physician: Aaron Leyva ENP MDM Medication Administration(s) Medication Administration History Discontinued Medications Ondansetron HCl (Ondansetron Inj 2 Mg/Ml Inj 2 Ml) 4 mg IM X1 ONE; Protocol Stop: 01/25/25 15:21 Last Admin: 01/25/25 16:00 Dose: 4 mg Documented By:
[2025-01-25 17:07] LABS: Bilirubin,Urine Negative (Negative); Blood,Urine Negative (Negative); Clarity,Urine Clear (Clear/Hazy); Color,Urine Lt-Yellow (Lt Yel-Yel); Glucose, Urine Negative (Negative); Ketones,Urine Negative (Negative); Leukocyte Esterase,Urine Negative (Negative); Nitrite,Urine Negative (Negative); PH,Urine 7.0 (5.0-7.0); Protein,Urine Negative (Neg - Trace); RBC,Urine 1 /hpf (0-3); Specific Gravity,Urine 1.012 (1.001-1.035); Urobilinogen,Urine Negative mg/dL (0.0-1.0); WBC,Urine 1 /hpf (0-5)
[2025-01-25 17:17] LABS: INR 1.1 (0.9-1.3); Partial Thromboplastin Time 28.0 Seconds (22.0-36.0); Prothrombin Time 11.9 Seconds (9.0-12.2)
[2025-01-25 17:45] VITALS: BP 108/68; PULSE 86; RESP 20; TEMP 36.6; O2SAT 96
[2025-01-25 18:30] VITALS: BP 108/76; PULSE 84; RESP 16; O2SAT 96
== END 2025-01-25 18:31 | disposition home or self-care (01) ==
PROVIDERS: Nurse Practitioner Family; Registered Nurse General Practice; Emergency Provider Family Medicine; PCP Family Medicine
DX: R14.0 Abdominal distension (gaseous) (principal); R18.8 Other ascites; K74.60 Unspecified cirrhosis of liver
CPT/HCPCS: 36415; 74176; 80053; 81001; 83690; 85025; 85610; 85730; 96372; 99284; J2405

== ENCOUNTER 2025-01-26 07:35 | Emergency (ER) | payer MEDICAID, SELFPAY ==
[2025-01-26 07:44] VITALS: BP 126/82; PULSE 112; RESP 20; TEMP 37; O2SAT 95; BMI 30.7
--- NOTE | 2025-01-26 07:51 | XR_ITS ---
Examination: Ultrasound-guided paracentesis Abdominal sonogram limited Date and time of exam: January 26, 2025, 1038 hours INDICATIONS: Cirrhosis, increasing ascites and abdominal distention this week Informed consent provided. A timeout was completed verifying correct patient, procedure, site, positioning, and special adequate movement if applicable. Technique: Multiple sonographic images of the abdomen have been obtained. Appropriate area for paracentesis was marked. Local anesthesia is obtained with 1% lidocaine. Yueh catheter is successfully introduced. Findings: Abdominal sonographic images demonstrate sufficient ascitic fluid for paracentesis. After placing the Yueh catheter, 4100 cc of fluid were successfully removed. During and after completion of the procedure the patient appear in satisfactory and stable condition with no complications observed. Estimated blood loss 0 cc Impression: Abdominal ascites Successful ultrasound-guided paracentesis as described above
--- NOTE | 2025-01-26 07:51 | EDRME_ITS ---
Rapid Medical Screening Exam [facility] Arrival date/time: 01/26/25 07:35 59-year-old male with a history of cirrhosis presents to the emergency room with a chief complaint of abdominal pain and abdominal distention x 2 days. Patient was seen here yesterday and was told to return to the emergency room today for a paracentesis I have greeted and performed a focused initial assessment of this patient. A comprehensive ED assessment and evaluation of the patient, analysis of all test results, and completion of the medical decision making process will be conducted by additional ED providers. Chief Complaint: General Adult/Misc Complain Vital signs: Vital Signs Temperature 98.6 F 01/26/25 07:44 Pulse Rate 112 H 01/26/25 07:44 Respiratory Rate 20 01/26/25 07:44 Blood Pressure 126/82 01/26/25 07:44 Pulse Oximetry (%) 95 01/26/25 07:44 Oxygen Delivery Method Room Air 01/26/25 07:44 Vital signs reviewed by provider: Yes
[2025-01-26 08:03] LABS: Basophils # (Auto) 0.0 Thou/mm3 (0.0-0.2); Basophils % (Auto) 1 % (0-2.5); Eosinophils # (Auto) 0.1 Thou/mm3 (0.0-0.5); Eosinophils % (Auto) 1 % (0-10); Hematocrit 43.6 % (41.0-53.0); Hemoglobin 13.6 g/dL (13.5-16.0); Immature Granulocytes Auto 0.02 Thou/mm3 (0.00-0.00); Lymphocytes # (Auto) 0.7 Thou/mm3 (1.0-4.8); Lymphocytes % (Auto) 10 % (10-50); Mean Corpuscular HGB Conc 31.2 g/dl (31.0-37.0); Mean Corpuscular Hemoglobin 23.2 pg (25.0-35.0); Mean Corpuscular Volume 75 fL (80-100); Monocytes # (Auto) 0.5 Thou/mm3 (0.0-0.8); Monocytes % (Auto) 8 % (0-12); Neutrophils # (Auto) 5.4 Thou/mm3 (1.8-7.7); Neutrophils % (Auto) 80 % (37-80); Nucleated Red Blood Cell # 0.00 Thou/mm3 (0.00-0.00); Nucleated Red Blood Cell % 0 /100 WBC (0); Platelet Count 366 Thou/mm3 (140-440); RDW Standard Deviation 35.5 fL (35.1-43.9); Red Blood Count 5.85 Miln/mm3 (4.50-5.90); White Blood Count 6.7 Thou/mm3 (3.8-10.6)
[2025-01-26 08:39] LABS: INR 1.1 (0.9-1.3); Partial Thromboplastin Time 27.4 Seconds (22.0-36.0); Prothrombin Time 11.9 Seconds (9.0-12.2)
[2025-01-26 08:44] LABS: Alanine Aminotransferase 8 U/L (10-49); Albumin, Serum 3.7 gm/dL (3.4-4.8); Albumin/Globulin Ratio 1.5 (1.2-2.2); Alkaline Phosphatase 83 U/L (46-116); Anion Gap 10 (7-16); Aspartate Amino Transferase 19 U/L (0-34); BUN/Creatinine Ratio 9 Ratio (12-20); Bilirubin,Total 0.7 mg/dL (0.3-1.2); Blood Urea Nitrogen 9 mg/dL (9-23); Calcium 9.2 mg/dL (8.3-10.6); Calcium (Corrected) 9.4 mg/dL (8.5-10.1); Carbon Dioxide 26.4 mMol/L (20.0-31.0); Chloride 101 mMol/L (98-107); Creatinine (Component) 1.0 mg/dL (0.6-1.3); Estimated Creatinine Clearance 78.3 mL/min (>60); Globulin 2.5 gm/dL (2.3-3.5); Glucose 169 mg/dL (74-106); Osmolality,Calculated 276 (275-295); Potassium 4.1 mMol/L (3.4-5.1); Sodium 137 mMol/L (136-145); Total Protein 6.2 gm/dL (5.7-8.2); eGFR > 60 See Note
[2025-01-26 09:27] VITALS: BP 125/90; PULSE 89; RESP 19; TEMP 36.9; O2SAT 98
--- NOTE | 2025-01-26 09:33 | EDNOTE_ITS ---
ED General RME/HPI General Chief complaint: General Adult/Misc Complain Stated complaint: NEEDS PARACENTESIS; ABD FULL OF FLUID Time Seen by Provider: 01/26/25 08:33 Arrival date/time: 01/26/25 07:35 RME / HPI RME / HPI narrative: 01/26/25 07:35 59-year-old male with a history of cirrhosis presents to the emergency room with a chief complaint of abdominal pain and abdominal distention x 2 days. Patient was seen here yesterday and was told to return to the emergency room today for a paracentesis I have greeted and performed a focused initial assessment of this patient. A comprehensive ED assessment and evaluation of the patient, analysis of all test results, and completion of the medical decision making process will be conducted by additional ED providers. DR. JOHNSON MAIN ED EVALUATION 59 year old male with history of gastritis, recently diagnosed with ascites (underwent paracentesis for the first time 01/15/2025) presents to the ED for evaluation of abdominal distention beginning yesterday. Accompanied by nausea and feeling slightly short of breath. Patient states he was evaluated here yesterday for abdominal pain with nausea and discharged home with nausea medications. States he has followed up with his PCP since undergoing paracentesis 1.5 weeks ago, was started on Furosemide 20mg QDAY and Spiranolactone 50mg QDAY. Also states he has been referred to GI. Denies fevers, chills, chest pain, cough, or urinary symptoms. Related Data Previous Rx's ?Medication ?Instructions ?Recorded famotidine 40 mg tablet (Pepcid) 40 mg PO BID #30 tabs 12/26/24 metoclopramide HCl 10 mg tablet 10 mg PO Q6H PRN nause a and 12/26/24 (Reglan) vomiting #20 tabs Allergies Allergy/AdvReac Type Severity Reaction Status Date / Time No Known Allergies Allergy Verified 01/26/25 07:37 Review of Systems Review of Systems Systems Reviewed: All systems reviewed, normal except as documented Past Medical History Past Medical History GASTROINTESTINAL: Positive Cirrhosis Social History SMOKING STATUS: Never smoker ED Exam Narrative Physical exam: Constitutional: Awake, alert, nontoxic, no acute distress HEENT: NC, AT, EOMI Neck: Supple CV: Slightly tachycardic, no m/r/g Lungs: CTAB, no w/r/r, no respiratory distress. Abd: Soft, +fluid wave, not significantly distended, NT, no HSM noted to palpation Extremities: No deformities, no edema noted Neuro: AAOx3, CN 2-12 GIBL, no acute neuro deficit noted. Skin: Warm, dry, intact Course Course Course Narrative: 1305h: Paracentesis was completed and the patient remained stable. Advised he follow up with his PCP to schedule further paracentesis in the future when needed. Additionally advised he follow up with GI as an outpatient as well. Patient doing well at this time and okay for discharge home. Quality Measures none Orders Category Date Time Status US paracentesis abd w/image Stat Exams 01/26/25 07:51 Completed CBC Stat Lab 01/26/25 07:56 Completed CMP [Comprehensive Metabolic Panel] Stat Lab 01/26/25 07:56 Completed PT [Prothrombin Time with INR] Stat Lab 01/26/25 07:56 Completed PTT [Partial Thromboplastin Time] Stat Lab 01/26/25 07:56 Completed Lidocaine 1% Pf 30 ml [Xylocaine 1% Pf 30 ml] Med 01/26/25 10:25 Discontinued 30 ml .ROUTE .STK-MED ONE Vital Signs Vital signs: Vital Signs Temperature 98.6 F 01/26/25 07:44 Pulse Rate 112 H 01/26/25 07:44 Respiratory Rate 20 01/26/25 07:44 Blood Pressure 126/82 01/26/25 07:44 Pulse Oximetry (%) 95 01/26/25 07:44 Oxygen Delivery Method Room Air 01/26/25 07:44 Pulse ox is 95% on room air which is adequate. Discharge Plan Plan Patient Disposition: HOME (Self Care) Patient condition on transfer: Stable Prescriptions/Referrals Prescriptions/Med Rec: No Action metoclopramide HCl [Reglan] 10 mg tablet 10 mg PO Q6H PRN (Reason: nausea and vomiting) Qty: 20 0RF famotidine [Pepcid] 40 mg tablet 40 mg PO BID Qty: 30 0RF Referrals: Alyssa Lund MD [Physician, Gastroenterology] - In 1 week Referral Note: ascites No Primary/Family,Physician [Primary Care Provider] - In 1 week Problem List Clinical Impression: Ascites Patient/Caregiver Discharge Instructions Education Materials: Paracentesis Additional Instructions: Some general health principles that can benefit are the NEW START principles: Nutrition (plant-based, less processed foods) Exercise (daily as tolerated) Water (fresh water better for hydration rather than sodas, juice, etc) [place] (spend time in the lockstitch tunnel elastic operator and late evening sun for your vitamin D) [place] (avoid alcohol, drugs, caffeinated beverages) Air (exposure to fresh air in nature daily when possible) Rest (adequate sleep at night, trying to go to bed no later than 9-10pm; good sleep hygiene - avoiding loud noises, phones, television prior to bed) Trust in God (spend time daily in prayer and reading scripture, contemplating the true character of God) See additional resources at [email or web address], look under resources and seminars, as well as blogs. Print Language: Kyrgyz Stand Alone Forms: Luz Award Info., Patient Portal Info Letter MDM Narrative MDM hospital course (for use when minimal MDM required): Tracie Joel, jose e scribing for and in the presence of Dr. Johnson. Clinical Information Provided by: patient Medical Records reviewed [facility] Meds/Rx considered, not ordered None Labs/Rad/Tests considered, not ordered None Chronic Illness/Social Conditions which may negatively complicate care or outcome(s)-explain: ETOH/drugs/substance abuse EKG EKG not done Labs Labs: see narrative above Imaging Imaging Interpretation(s): Ordering Physician: Ian Otoole Date of Service: 01/26/25 Procedure(s): US paracentesis abd w/image Accession Number(s): [id number] cc: Ian Otoole; Dewey Rock MD; NO PRIMARY/FAMILY,PHYSICIAN~ Examination: Ultrasound-guided paracentesis Abdominal sonogram limited Date and time of exam: January 26, 2025, 1038 hours INDICATIONS: Cirrhosis, increasing ascites and abdominal distention this week Informed consent provided. A timeout was completed verifying correct patient, procedure, site, positioning, and special adequate movement if applicable. Technique: Multiple sonographic images of the abdomen have been obtained. Appropriate area for paracentesis was marked. Local anesthesia is obtained with 1% lidocaine. Yueh catheter is successfully introduced. Findings: Abdominal sonographic images demonstrate sufficient ascitic fluid for paracentesis. After placing the Yueh catheter, 4100 cc of fluid were successfully removed. During and after completion of the procedure the patient appear in satisfactory and stable condition with no complications observed. Estimated blood loss 0 cc Impression: Abdominal ascites Successful ultrasound-guided paracentesis as described above Dictated By: Dewey Rock MD Signed By: <Electronically signed by Dewey Rock MD in OV> 01/26/25 6499 Medication Administration(s) Medication Administration History Discontinued Medications Lidocaine HCl (Lidocaine Inj Pf 1% 30 Ml Vial) Confirm Administered Dose 30 ml .ROUTE .[facility]-MED ONE Stop: 01/26/25 10:26 Last Admin: 01/26/25 12:07 Dose: Not Given Documented By: VL Non-Admin Reason: Duplicate Medication on eMAR See above Diagnosis Diagnoses ruled out and/or further discussions: Ascites
[2025-01-26 12:03] VITALS: BP 114/77; PULSE 80; RESP 19; TEMP 36.4; O2SAT 96
[2025-01-26 12:44] VITALS: BP 122/76; PULSE 81; RESP 17; TEMP 36.7; O2SAT 99
[2025-01-26 13:13] VITALS: BP 120/79; PULSE 84; RESP 18; O2SAT 99
== END 2025-01-26 13:14 | disposition home or self-care (01) ==
PROVIDERS: Nurse Practitioner Family; Emergency Provider Family Medicine
DX: K74.60 Unspecified cirrhosis of liver (principal); R18.8 Other ascites
CPT/HCPCS: 49083; 36415; 80053; 85025; 85610; 85730; 99283; C1729

== ENCOUNTER → 2025-02-02 | Outpatient (CLI) | payer MEDICAID, SELFPAY ==
[2025-02-02 16:45] LABS: INR 1.1 (0.9-1.3); Prothrombin Time 11.7 Seconds (9.0-12.2)
[2025-02-02 16:54] LABS: Alanine Aminotransferase 12 U/L (10-49); Albumin, Serum 3.4 gm/dL (3.4-4.8); Albumin/Globulin Ratio 1.5 (1.2-2.2); Alkaline Phosphatase 89 U/L (46-116); Anion Gap 10 (7-16); Aspartate Amino Transferase 22 U/L (0-34); BUN/Creatinine Ratio 7 Ratio (12-20); Bilirubin,Total 0.4 mg/dL (0.3-1.2); Blood Urea Nitrogen 7 mg/dL (9-23); Calcium 8.4 mg/dL (8.3-10.6); Calcium (Corrected) 8.9 mg/dL (8.5-10.1); Carbon Dioxide 25.7 mMol/L (20.0-31.0); Chloride 102 mMol/L (98-107); Creatinine (Component) 1.0 mg/dL (0.6-1.3); Globulin 2.3 gm/dL (2.3-3.5); Glucose 154 mg/dL (74-106); Osmolality,Calculated 276 (275-295); Potassium 3.9 mMol/L (3.4-5.1); Sodium 138 mMol/L (136-145); Total Protein 5.7 gm/dL (5.7-8.2); eGFR > 60 See Note
== END | disposition home or self-care (01) ==
LOC: COPL 14:13
PROVIDERS: PCP Family Medicine
DX: K74.60 Unspecified cirrhosis of liver (principal)
CPT/HCPCS: 36415; 80053; 85610

== ENCOUNTER 2025-02-03 12:53 | Emergency (ER) | payer MEDICAID, SELFPAY ==
[2025-02-03 12:53] VITALS: BMI 29.1
[2025-02-03 13:04] VITALS: BP 116/77; PULSE 104; RESP 18; TEMP 36.6; O2SAT 96
--- NOTE | 2025-02-03 13:22 | XR_ITS ---
Examination: Ultrasound-guided paracentesis Abdominal sonogram limited Date and time of exam: February 03, 2025, 1504 hours INDICATIONS: Cirrhosis, increasing ascites abdominal distention this week Informed consent provided. A timeout was completed verifying correct patient, procedure, site, positioning, and special adequate movement if applicable. Technique: Multiple sonographic images of the abdomen have been obtained. Appropriate area for paracentesis was marked. Local anesthesia is obtained with 1% lidocaine. Yueh catheter is successfully introduced. Findings: Abdominal sonographic images demonstrate sufficient ascitic fluid for paracentesis. After placing the Yueh catheter, 3800 cc of fluid were successfully removed. During and after completion of the procedure the patient appear in satisfactory and stable condition with no complications observed. Estimated blood loss 0 cc Impression: Abdominal ascites Successful ultrasound-guided paracentesis as described above
[2025-02-03 15:41] VITALS: BP 128/82; PULSE 78
--- NOTE | 2025-02-03 15:41 | EDNOTE_ITS ---
<Statement entered by Heather Mena MD - 02/15/25 14:16> As co-signing physician, I was present and available for consult prn. I concur with the plan and care as documented by the midlevel provider. ED Abdominal Pain RME/HPI General Chief Complaint: Abdominal Pain Stated complaint: NEEDS PARACENTESIS Time seen by provider: 02/03/25 13:21 Arrival date/time: 02/03/25 12:53 59-year-old male presents to the emergency department today for paracentesis patient reports no acute chest pain shortness of breath reports he only needs a paracentesis Limitations: no limitations Related Data Previous Rx's ?Medication ?Instructions ?Recorded famotidine 40 mg tablet (Pepcid) 40 mg PO BID #30 tabs 12/26/24 metoclopramide HCl 10 mg tablet 10 mg PO Q6H PRN nause a and 12/26/24 (Reglan) vomiting #20 tabs Allergies Allergy/AdvReac Type Severity Reaction Status Date / Time No Known Allergies Allergy Verified 02/03/25 12:55 Review of Systems Review of Systems Systems Reviewed: All systems reviewed, normal except as documented Constitutional Constitutional: Reports system reviewed and no additional complaints, except as documented, Denies fever(s) and Denies headache(s) Eyes Eyes: Reports system reviewed and no additional complaints, except as documented and Denies blurry vision ENT Ears, Nose, Mouth, and Throat: Reports system reviewed and no additional complaints, except as documented, Denies headache(s), Denies nasal congestion and Denies nasal discharge Cardiovascular Cardiovascular: Reports system reviewed and no additional complaints, except as documented, Denies chest pain and Denies dyspnea Respiratory Respiratory: Reports system reviewed and no additional complaints, except as documented, Denies chest congestion, Denies cough and Denies dyspnea Gastrointestinal Gastrointestinal: Reports system reviewed and no additional complaints, except as documented, Denies abdominal pain and Reports other (Abdominal distention) Integumentary/Breasts Skin/Breast: Reports system reviewed and no additional complaints, except as documented and Denies rash Neurologic Neurologic: Reports system reviewed and no additional complaints, except as documented, Reports as per HPI and Denies headache(s) Past Medical History Past Medical History CARDIAC: Negative Congestive Heart Failure RESPIRATORY: Negative Chronic Obstructive Pulmonary Disease (COPD) GASTROINTESTINAL: Positive Cirrhosis GENITOURINARY: Negative Renal Disease ENDOCRINE: Negative Diabetes Mellitus Type 1 or Diabetes Mellitus Type 2 Social History SMOKING STATUS: Never smoker ED Exam General Limitations: Present no limitations General appearance: Present alert and in no apparent distress Head Head exam: Present atraumatic Eye Eye exam: Present normal appearance, PERRL and EOMI ENT ENT exam: Present normal exam, normal oropharynx and mucous membranes moist Neck Neck exam: Present normal inspection, full ROM and trachea midline Chest Chest inspection: Present normal inspection and symmetric chest wall rise Respiratory Respiratory exam: Present normal lung sounds bilaterally Cardiovascular Cardiovascular exam: Present regular rate, normal rhythm and normal heart sounds Abdominal Exam Abdominal exam: Present soft, distention, normal bowel sounds and ascites Extremities Exam Extremities exam: Present normal inspection and full ROM Back Exam Back exam: Present normal inspection and full ROM Neurological Exam Neurological exam: Present alert, oriented X3 and CN II-XII intact Psychiatric Psychiatric exam: Present normal affect and normal mood Skin Skin exam: Present warm, dry, intact and normal color Course Quality Measures none Orders Category Date Time Status US paracentesis abd w/image Stat Exams 02/03/25 13:22 Completed Lidocaine 1% Pf 30 ml [Xylocaine 1% Pf 30 ml] Med 02/03/25 13:47 Discontinued 30 ml .ROUTE .STK-MED ONE Vital Signs Vital signs: Vital Signs Temperature 97.9 F 02/03/25 13:04 Pulse Rate 104 H 02/03/25 13:04 Respiratory Rate 18 02/03/25 13:04 Blood Pressure 116/77 02/03/25 13:04 Pulse Oximetry (%) 96 02/03/25 13:04 Oxygen Delivery Method Room Air 02/03/25 13:04 O2 saturation 96% on room air within normal limits Abdominal Pain MDM MDM Narrative MDM Narrative:: 59-year-old male presents to the emergency department today for paracentesis patient reports no acute chest pain shortness of breath reports he only needs a paracentesis On exam patient well-appearing patient does not appear ill or toxic no acute stress Ultrasound/paracentesis obtained patient tolerated procedure well Patient discharged home in no distress to follow-up with primary care doctor in the next 24 to 48 hours and for any worsening symptoms to return to the ER immediately Patient data External records reviewed:: [facility] previous records Clinical information provided by:: patient Social determinants that could affect healthcare access:: none Patient has the following chronic illnesses:: none How is presenting disease/condition affected by chronic disease/condition?: no chronic disease Evaluation data The following diagnostics were reviewed and interpreted by me:: radiology exam(s) Lab and/or radiology exams considered but not ordered:: Radiology obtained Interpretation Summary: Reviewed by me Medications / Prescriptions Medications or Prescriptions considered but not ordered:: No meds Medication administrations:: Medication Administration History Discontinued Medications Lidocaine HCl (Lidocaine Inj Pf 1% 30 Ml Vial) Confirm Administered Dose 30 ml .ROUTE .STK-MED ONE Stop: 02/03/25 13:48 Ordered and used by radiologist Consultations Consultation(s) initiated? (list below): No Diagnosis Differential diagnosis abdominal pain: abdominal pain, acute appendicitis and other Most likely diagnosis given after review of the tests above:: Encounter for paracentesis, ascites Admission Indicated Admission indicated?: not indicated Admission Request Was there a request for admission?: No Disposition Plan Disposition Plan: Discharge Discharge Attestation Discharge Attestation: The patient and all family members were given an opportunity to ask questions and understood the discharge instructions. Discharge instructions specifically effects, indications for sooner follow up or return to the emergency department, and the expected course of current diagnosis. Patient condition: Stable Discharge Plan Plan Patient Disposition: HOME (Self Care) Discharge Disposition comment: Stable Prescriptions/Referrals Prescriptions/Med Rec: No Action metoclopramide HCl [Reglan] 10 mg tablet 10 mg PO Q6H PRN (Reason: nausea and vomiting) Qty: 20 0RF famotidine [Pepcid] 40 mg tablet 40 mg PO BID Qty: 30 0RF Problem List Clinical Impression: Cirrhosis, Status post abdominal paracentesis Patient/Caregiver Discharge Instructions Education Materials: Paracentesis Additional Instructions: Please follow up with your primary care doctor in the next 24-48hrs for any worsening symptoms return here immediately Print Language: Afghan Stand Alone Forms: Luz Award Info., Patient Portal Info Letter PA/FELT WASHING MACHINE TENDER Supervising Physician PA/FELT WASHING MACHINE TENDER Supervising Physician: Dr. mena
== END 2025-02-03 20:20 | disposition home or self-care (01) ==
PROVIDERS: Emergency Provider Emergency Medicine; PCP Family Medicine
DX: K74.60 Unspecified cirrhosis of liver (principal); R18.8 Other ascites
CPT/HCPCS: 49083; 99283; C1729

== ENCOUNTER → 2025-02-11 | Outpatient (CLI) | payer MEDICAID, SELFPAY ==
--- NOTE | 2025-02-11 12:28 | XR_ITS ---
Examination: Ultrasound-guided paracentesis Abdominal sonogram limited Date and time of exam: 02/11/2025, 1:04 p.m. INDICATION: Ascites Informed consent provided. A timeout was completed verifying correct patient, procedure, site, positioning, and special adequate movement if applicable. Technique: Multiple sonographic images of the abdomen have been obtained. Appropriate area for paracentesis was marked. Local anesthesia is obtained with 1% lidocaine. Yueh catheter is successfully introduced. Findings: Abdominal sonographic images demonstrate sufficient ascitic fluid for paracentesis. After placing the Yueh catheter, 1330 cc of fluid were successfully removed. During and after completion of the procedure the patient appear in satisfactory and stable condition with no complications observed. Estimated blood loss 0 cc Impression: Abdominal ascites Successful ultrasound-guided paracentesis as described above
[2025-02-11 13:23] LABS: Basophils # (Auto) 0.0 Thou/mm3 (0.0-0.2); Basophils % (Auto) 0 % (0-2.5); Eosinophils # (Auto) 0.1 Thou/mm3 (0.0-0.5); Eosinophils % (Auto) 2 % (0-10); Hematocrit 44.8 % (41.0-53.0); Hemoglobin 14.1 g/dL (13.5-16.0); Immature Granulocytes Auto 0.02 Thou/mm3 (0.00-0.00); Lymphocytes # (Auto) 0.9 Thou/mm3 (1.0-4.8); Lymphocytes % (Auto) 13 % (10-50); Mean Corpuscular HGB Conc 31.5 g/dl (31.0-37.0); Mean Corpuscular Hemoglobin 22.8 pg (25.0-35.0); Mean Corpuscular Volume 73 fL (80-100); Monocytes # (Auto) 0.6 Thou/mm3 (0.0-0.8); Monocytes % (Auto) 8 % (0-12); Neutrophils # (Auto) 5.7 Thou/mm3 (1.8-7.7); Neutrophils % (Auto) 77 % (37-80); Nucleated Red Blood Cell # 0.00 Thou/mm3 (0.00-0.00); Nucleated Red Blood Cell % 0 /100 WBC (0); Platelet Count 356 Thou/mm3 (140-440); RDW Standard Deviation 35.9 fL (35.1-43.9); Red Blood Count 6.18 Miln/mm3 (4.50-5.90); White Blood Count 7.3 Thou/mm3 (3.8-10.6)
[2025-02-11 13:36] LABS: INR 1.1 (0.9-1.3); Partial Thromboplastin Time 27.6 Seconds (22.0-36.0); Prothrombin Time 11.4 Seconds (9.0-12.2)
[2025-02-11 13:43] LABS: Alanine Aminotransferase 10 U/L (10-49); Albumin, Serum 3.7 gm/dL (3.4-4.8); Albumin/Globulin Ratio 1.5 (1.2-2.2); Alkaline Phosphatase 103 U/L (46-116); Anion Gap 9 (7-16); Aspartate Amino Transferase 21 U/L (0-34); BUN/Creatinine Ratio 9 Ratio (12-20); Bilirubin,Total 0.5 mg/dL (0.3-1.2); Blood Urea Nitrogen 9 mg/dL (9-23); Calcium 9.0 mg/dL (8.3-10.6); Calcium (Corrected) 9.2 mg/dL (8.5-10.1); Carbon Dioxide 27.8 mMol/L (20.0-31.0); Chloride 100 mMol/L (98-107); Creatinine (Component) 1.0 mg/dL (0.6-1.3); Globulin 2.5 gm/dL (2.3-3.5); Glucose 116 mg/dL (74-106); Osmolality,Calculated 273 (275-295); Potassium 4.2 mMol/L (3.4-5.1); Sodium 137 mMol/L (136-145); Total Protein 6.2 gm/dL (5.7-8.2); eGFR > 60 See Note
== END | disposition home or self-care (01) ==
PROVIDERS: PCP Family Medicine; Referring Provider Family Medicine; Visit Provider Family Medicine
DX: R18.8 Other ascites (principal); K74.69 Other cirrhosis of liver
CPT/HCPCS: 49083; 36415; 80053; 85025; 85610; 85730; C1729

== ENCOUNTER → 2025-03-22 | Outpatient (CLI) | payer MEDICAID, SELFPAY ==
[2025-03-22 14:53] LABS: Basophils # (Auto) 0.0 Thou/mm3 (0.0-0.2); Basophils % (Auto) 0 % (0-2.5); Eosinophils # (Auto) 0.0 Thou/mm3 (0.0-0.5); Eosinophils % (Auto) 0 % (0-10); Hematocrit 44.4 % (41.0-53.0); Hemoglobin 14.0 g/dL (13.5-16.0); Immature Granulocytes Auto 0.03 Thou/mm3 (0.00-0.00); Lymphocytes # (Auto) 0.6 Thou/mm3 (1.0-4.8); Lymphocytes % (Auto) 7 % (10-50); Mean Corpuscular HGB Conc 31.5 g/dl (31.0-37.0); Mean Corpuscular Hemoglobin 22.4 pg (25.0-35.0); Mean Corpuscular Volume 71 fL (80-100); Monocytes # (Auto) 0.6 Thou/mm3 (0.0-0.8); Monocytes % (Auto) 7 % (0-12); Neutrophils # (Auto) 6.9 Thou/mm3 (1.8-7.7); Neutrophils % (Auto) 85 % (37-80); Nucleated Red Blood Cell # 0.00 Thou/mm3 (0.00-0.00); Nucleated Red Blood Cell % 0 /100 WBC (0); Platelet Count 404 Thou/mm3 (140-440); RDW Standard Deviation 39.0 fL (35.1-43.9); Red Blood Count 6.25 Miln/mm3 (4.50-5.90); White Blood Count 8.1 Thou/mm3 (3.8-10.6)
[2025-03-22 14:57] LABS: INR 1.1 (0.9-1.3); Prothrombin Time 11.4 Seconds (9.0-12.2)
[2025-03-22 15:06] LABS: Albumin, Serum 3.1 gm/dL (3.4-4.8); Anion Gap 10 (7-16); BUN/Creatinine Ratio 15 Ratio (12-20); Blood Urea Nitrogen 15 mg/dL (9-23); Calcium 8.2 mg/dL (8.3-10.6); Calcium (Corrected) 8.9 mg/dL (8.5-10.1); Carbon Dioxide 24.8 mMol/L (20.0-31.0); Chloride 98 mMol/L (98-107); Creatinine (Component) 1.0 mg/dL (0.6-1.3); Glucose 144 mg/dL (74-106); Osmolality,Calculated 270 (275-295); Phosphorous 4.1 mg/dL (2.4-5.1); Potassium 4.4 mMol/L (3.4-5.1); Sodium 133 mMol/L (136-145); eGFR > 60 See Note
== END | disposition home or self-care (01) ==
PROVIDERS: PCP Family Medicine
DX: R18.0 Malignant ascites (principal)
CPT/HCPCS: 36415; 80069; 85025; 85610

== ENCOUNTER 2025-03-30 19:19 | Emergency (ER) | payer MEDICAID, SELFPAY ==
[2025-03-30 19:21] VITALS: PULSE 134; RESP 22; O2SAT 98; BMI 25.0
[2025-03-30 19:27] VITALS: BP 93/75; PULSE 125; RESP 16; TEMP 36.8; O2SAT 98
--- NOTE | 2025-03-30 19:27 | EKG_ITS ---
[facility] Test Date: 2025-03-30 Pat Name: NATALIYA CARRASCO Department: Room: - Gender: Male General Internist And Physician Leader: : 1965 Requested By: Aaron Soto Order Number: [id number] Reading MD: Aaron Soto Measurements Intervals [place] Rate: 123 P: 56 NC: 155 QRS: 170 QRSD: 115 T: 22 QT: 333 QTc: 477 Interpretive Statements SINUS TACHYCARDIA RIGHT AXIS DEVIATION [QRS AXIS > 100] LOW QRS VOLTAGE IN PRECORDIAL LEADS [QRS DEFLECTION < 1.0 mV IN CHEST LEADS] PATTERN CONSISTENT WITH PULMONARY DISEASE RIGHT BUNDLE BRANCH BLOCK [120+ ms QRS DURATION, UPRIGHT V1, 40+ ms S IN I/aVL/V4/V5/V6] No previous ECG available for comparison /[id number]/S0/[id number]
--- NOTE | 2025-03-30 19:29 | EDNOTE_ITS ---
ED General RME/HPI General Chief complaint: Abdominal Pain Stated complaint: WEAKNESS Time Seen by Provider: 03/30/25 19:24 Arrival date/time: 03/30/25 19:19 CC: Weakness, abdominal pain, nausea vomiting HPI EMS report tachycardia normal tensive with good saturations. Patient was recently diagnosed with colon c ancer. EMS reports the patient is a DNR and not seeking treatment. Patient initially had pain and nausea, which is alleviated with Tylenol and Zofran and route. At the time of the exam the patient is complaining of dry mouth. Son is now at bedside at 2043, he states that the patient is a DNR/DNI but wants everything done up to that point. Including requesting access for TPN. He also informs the patient gets a paracentesis every 3 to 4 days for ascites. The patient has not had paracentesis for greater than a week due to decreased p.o. intake. Son informs me the patient was scheduled for more permanent catheter in his abdomen in 2 days to allow it to be drained on a regular basis. Son also confirms that the patient has opted out of chemo and radiation. Related Data Previous Rx's ?Medication ?Instructions ?Recorded famotidine 40 mg tablet (Pepcid) 40 mg PO BID #30 tabs 12/26/24 metoclopramide HCl 10 mg tablet 10 mg PO Q6H PRN nause a and 12/26/24 (Reglan) vomiting #20 tabs prochlorperazine 25 mg rectal 25 mg AR BID PRN nausea and 03/30/25 suppository (Compazine) vomiting #12 ea Allergies Allergy/AdvReac Type Severity Reaction Status Date / Time No Known Allergies Allergy Verified 03/30/25 19:20 Review of Systems Review of Systems Narrative Review of Systems: GEN: No fever, no chills, no weight loss EYES: No discharge, no visual changes, no pain HEENT: No ear pain, no congestion, no sore throat PULM: No shortness of breath, no cough, no congestion CV: No chest pain, no dyspnea on exertion, no palpitations GI: No nausea, no vomiting, no diarrhea, + pain, no constipation : No frequency, no urgency, no dysuria MUSC/SKEL: No joint pain, no back pain SKIN: No rash PSYCH: No hallucinations, no depression HEME/LYMPH: No easy bleeding or bruising tendencies NEURO: No weakness, no headache Past Medical History Past Medical History CARDIAC: Negative Congestive Heart Failure RESPIRATORY: Negative Chronic Obstructive Pulmonary Disease (COPD) GASTROINTESTINAL: Positive Cirrhosis GENITOURINARY: Negative Renal Disease ENDOCRINE: Negative Diabetes Mellitus Type 1 or Diabetes Mellitus Type 2 Social History SMOKING STATUS: Never smoker ED Exam Narrative Physical exam: [General: In moderate discomfort but not in any acute distress Head normocephalic HEENT: Eyes pupils are PERRLA EOMs are intact mouth is pink and dry phonation normal swallow symmetrical. All other subsystems of HEENT are within acceptable limits Neck is supple nontender Chest equal chest rise nontender to palpation Respiratory: Clear to auscultation no wheezes crackles or rubs CV: Rate rhythm is regular no murmurs rubs or clicks Abdomen is distended secondary to body habitus soft nontender no masses positive bowel sounds all 4 quadrants Back: No CVA tenderness no spinous process tenderness from cervical spine thoracic and lumbar spine Skin: Sallow, intact no petechiae rash induration ulceration or crepitus Extremities: Moving all extremity against resistance cap refill less than 2 seconds neurosensory intact Neuro: Awake alert oriented x3 Glascow coma 15 no focal deficits] Course Course Course Narrative: Laboratory results are wholly unremarkable. After third liter patient's pressures have stabilized heart rate is come down into the low 100s. Had a lengthy discussion with the son, who states the last CT from [place] shows the patient has a large mass in the intestines causing an obstruction. In [place] surgeons declined this operated on due to it invading the abdominal wall. This rules out the possibility of a PEG tube. In TPN is not a viable options. PPN would be only temporary until PEG can be placed. All of this was discussed openly with the son, who understands and states that he he will allow the rehydration to happen today and will go home with the patient today and follow-up with [place] in 2 days for the drain tube to be placed in his abdomen for the recurrent ascites. I am reminded by the son that the patient has chosen not to have radiation or chemotherapy. Patient's son and I discussed hospice as a possible option as well and he is considering it at this point in time. Patient is aware of these conversations. Quality Measures none Orders Category Date Time Status EKG (ED ONLY) *Do not use* NOW Care 03/30/25 19:27 Completed Saline [Insert IV] NOW Care 03/30/25 19:26 Active EKG (ED Only) Stat Exams 03/30/25 19:27 Draft B-Type Natriuretic Peptide Stat Lab 03/30/25 20:00 Completed CBC Stat Lab 03/30/25 20:00 Completed Comprehensive Metabolic Panel Stat Lab 03/30/25 20:00 Completed Drug Screen,Urine Stat Lab 03/30/25 21:27 Completed LDH (Lactate Dehydrogenase) Stat Lab 03/30/25 20:00 Completed Magnesium Stat Lab 03/30/25 20:00 Completed Partial Thromboplastin Time Stat Lab 03/30/25 20:00 Completed Prothrombin Time with INR Stat Lab 03/30/25 20:00 Completed Troponin I Stat Lab 03/30/25 20:00 Completed Urinalysis, C/S if Indicated Stat Lab 03/30/25 21:27 Completed Prochlorperazine Inj [Compazine Inj] Med 03/30/25 20:26 Discontinued 5 mg IV X1 ONE Ringers Lactated 1000 ml [Lactated Ringers] 1,000 ml Med 03/30/25 19:27 Discontinued IV 999 mls/hr Ringers Lactated 1000 ml [Lactated Ringers] 1,000 ml Med 03/30/25 20:26 Discontinued IV 999 mls/hr Ringers Lactated 1000 ml [Lactated Ringers] 1,000 ml Med 03/30/25 22:06 Active IV 999 mls/hr Vital Signs Vital signs: Vital Signs Temperature 98.2 F 03/30/25 19:27 Pulse Rate 125 H 03/30/25 19:27 Respiratory Rate 16 03/30/25 19:27 Blood Pressure 93/75 03/30/25 19:27 Pulse Oximetry (%) 98 03/30/25 19:27 Oxygen Delivery Method Room Air 03/30/25 19:27 Discharge Plan Plan Patient Disposition: HOME (Self Care) Patient condition on transfer: Stable Prescriptions/Referrals Prescriptions/Med Rec: New prochlorperazine [Compazine] 25 mg suppository 25 mg AR BID PRN (Reason: nausea and vomiting) Qty: 12 0RF No Action metoclopramide HCl [Reglan] 10 mg tablet 10 mg PO Q6H PRN (Reason: nausea and vomiting) Qty: 20 0RF famotidine [Pepcid] 40 mg tablet 40 mg PO BID Qty: 30 0RF Referrals: No Primary/Family,Physician [Primary Care Provider] - In 1 week Edilberto Butler MD [Physician, Family Practice] - In 1 week Problem List Clinical Impression: Dehydration, Nausea & vomiting Patient/Caregiver Discharge Instructions Education Materials: Dehydration Additional Instructions: Follow-up with [place] for the drain tube. Talk to the surgeons there regarding PEG tube possibility for rehydration Print Language: [place]er Stand Alone Forms: Luz Award Info., Patient Portal Info Letter, Work/School Release PA/UNDERGROUND HEAVY EQUIPMENT OPERATOR Supervising Physician PA/UNDERGROUND HEAVY EQUIPMENT OPERATOR Supervising Physician: Aaron Leyva ENP [facility] Clinical Information Provided by: patient and EMS Medical Records reviewed [facility] and EMS Meds/Rx considered, not ordered None Labs/Rad/Tests considered, not ordered None Chronic Illness/Social Conditions which may negatively complicate care or outcome(s)-explain: Cancer Explain: Stage IV colon cancer not seeking treatment EKG EKG not done Labs Labs: interpreted by fl Lab(s) Interpretation(s): CBC shows no acute leukocytosis anemia thrombocytopenia CMP shows sodium 134 glucose of 122 no other significant electrolyte imbalances renal impairment transaminitis or T. bili elevation. Troponin is unremarkable BMP is unremarkable. Magnesium is normal. Medication Administration(s) Medication Administration History Lactated Ringer's (Lactated Ringers) 1,000 mls @ 999 mls/hr IV .Q1H1M ONE Stop: 03/30/25 23:06 Last Admin: 03/30/25 22:18 Dose: 999 mls/hr Documented By: ZEFERINO Discontinued Medications Lactated Ringer's (Lactated Ringers) 1,000 mls @ 999 mls/hr IV .Q1H1M ONE Stop: 03/30/25 20:27 Last Infusion: 03/30/25 20:42 Dose: Infused Documented By: Admin: 03/30/25 19:38 Dose: 999 mls/hr Documented By: ZEFERINO Lactated Ringer's (Lactated Ringers) 1,000 mls @ 999 mls/hr IV .Q1H1M ONE Stop: 03/30/25 21:26 Last Infusion: 03/30/25 21:53 Dose: Infused Documented By: Admin: 03/30/25 20:45 Dose: 999 mls/hr Documented By: ZEFERINO Prochlorperazine Edisylate (Prochlorperazine Inj 5 Mg/Ml Vial 2 Ml) 5 mg IV X1 ONE; Protocol Stop: 03/30/25 20:27 Last Admin: 03/30/25 20:45 Dose: 5 mg Documented By: ZEFERINO
[2025-03-30] MEDS: RINGERS LACTATED 1000 ML 1,000 ML 999 ML IV ×3 (19:38→22:18)
[2025-03-30 20:35] LABS: Basophils # (Auto) 0.0 Thou/mm3 (0.0-0.2); Basophils % (Auto) 0 % (0-2.5); Eosinophils # (Auto) 0.0 Thou/mm3 (0.0-0.5); Eosinophils % (Auto) 0 % (0-10); Hematocrit 42.7 % (41.0-53.0); Hemoglobin 13.5 g/dL (13.5-16.0); Immature Granulocytes Auto 0.05 Thou/mm3 (0.00-0.00); Lymphocytes # (Auto) 0.5 Thou/mm3 (1.0-4.8); Lymphocytes % (Auto) 5 % (10-50); Mean Corpuscular HGB Conc 31.6 g/dl (31.0-37.0); Mean Corpuscular Hemoglobin 22.4 pg (25.0-35.0); Mean Corpuscular Volume 71 fL (80-100); Monocytes # (Auto) 0.8 Thou/mm3 (0.0-0.8); Monocytes % (Auto) 8 % (0-12); Neutrophils # (Auto) 8.7 Thou/mm3 (1.8-7.7); Neutrophils % (Auto) 86 % (37-80); Nucleated Red Blood Cell # 0.00 Thou/mm3 (0.00-0.00); Nucleated Red Blood Cell % 0 /100 WBC (0); Platelet Count 319 Thou/mm3 (140-440); RDW Standard Deviation 39.4 fL (35.1-43.9); Red Blood Count 6.03 Miln/mm3 (4.50-5.90); White Blood Count 10.1 Thou/mm3 (3.8-10.6)
[2025-03-30] MEDS: PROCHLORPERAZINE INJ 5 MG/ML VIAL 2 ML IV (20:45)
[2025-03-30 20:51] LABS: Alanine Aminotransferase < 7 U/L (10-49); Albumin, Serum 2.7 gm/dL (3.4-4.8); Albumin/Globulin Ratio 1.2 (1.2-2.2); Alkaline Phosphatase 113 U/L (46-116); Anion Gap 8 (7-16); Aspartate Amino Transferase 20 U/L (0-34); BUN/Creatinine Ratio 17 Ratio (12-20); Bilirubin,Total 0.5 mg/dL (0.3-1.2); Blood Urea Nitrogen 17 mg/dL (9-23); Calcium 8.1 mg/dL (8.3-10.6); Calcium (Corrected) 9.1 mg/dL (8.5-10.1); Carbon Dioxide 26.7 mMol/L (20.0-31.0); Chloride 99 mMol/L (98-107); Creatinine (Component) 1.0 mg/dL (0.6-1.3); Estimated Creatinine Clearance 68.3 mL/min (>60); Globulin 2.3 gm/dL (2.3-3.5); Glucose 122 mg/dL (74-106); LDH (Lactate Dehydrogenase) 197 U/L (120-246); Magnesium 2.0 mg/dL (1.6-2.6); Osmolality,Calculated 270 (275-295); Potassium 4.9 mMol/L (3.4-5.1); Sodium 134 mMol/L (136-145); Total Protein 5.0 gm/dL (5.7-8.2); Troponin I < 0.020 ng/mL (0.0-0.045); eGFR > 60 See Note
[2025-03-30 20:56] LABS: B-Type Natriuretic Peptide 26 pg/mL (0-100)
[2025-03-30 21:40] LABS: Collection Type, Urine Clean Catch; Squamous Epithelial Cell,Urine 0 /hpf (0-5)
[2025-03-30 21:43] LABS: INR 1.2 (0.9-1.3); Partial Thromboplastin Time 32.4 Seconds (22.0-36.0); Prothrombin Time 12.3 Seconds (9.0-12.2)
[2025-03-30 21:46] LABS: Bilirubin,Urine Negative (Negative); Blood,Urine Negative (Negative); Clarity,Urine Clear (Clear/Hazy); Color,Urine Yellow (Lt Yel-Yel); Culture Indicated,Urine Not Indicated; Glucose, Urine Negative (Negative); Ketones,Urine Trace (Negative); Leukocyte Esterase,Urine Negative (Negative); Nitrite,Urine Negative (Negative); PH,Urine 6.0 (5.0-7.0); Protein,Urine 1+ (Neg - Trace); RBC,Urine 2 /hpf (0-3); Specific Gravity,Urine 1.032 (1.001-1.035); Urobilinogen,Urine 3.0 mg/dL (0.0-1.0); WBC,Urine 3 /hpf (0-5)
[2025-03-30 21:53] LABS: Amphetamine/Methamp Scrn,U Negative (Negative); Barbiturate Screen,Urine Negative (Negative); Benzodiazepines Screen,Urine Negative (Negative); Benzoylecgonine Screen, Ur Negative (Negative); Fentanyl Screen,Urine Negative (Negative); Opiate Screen,Urine Negative (Negative); THC Screen,Urine Negative (Negative)
[2025-03-30 22:02] VITALS: BP 100/68; PULSE 105; RESP 18; TEMP 36.4; O2SAT 96
[2025-03-30 23:37] VITALS: PULSE 99; RESP 20; O2SAT 97
== END 2025-03-30 23:39 | disposition home or self-care (01) ==
PROVIDERS: Registered Nurse General Practice; Emergency Provider Emergency Medicine
DX: E86.0 Dehydration (principal); R11.2 Nausea with vomiting, unspecified; R00.0 Tachycardia, unspecified; I45.10 Unspecified right bundle-branch block; Z66 Do not resuscitate
CPT/HCPCS: 36415; 80053; 80307; 81001; 83615; 83735; 83880; 84484; 85025; 85610; 85730; 93005; 96360; 96361; 99283; J0780; J7120